=== PATIENT | male | born 1960 | race Caucasian/White ===

== ENCOUNTER 2020-08-15 11:05 | Outpatient (CLI) | payer OTHER | END 2020-08-15 11:06 | disposition home or self-care (01) | LOC: ULT 11:05 | PROVIDERS: ATTEND Psychiatry & Neurology Neurology | DX: Z02.71 Encounter for disability determination (principal); I70.203 Unspecified atherosclerosis of native arteries of extremities, bilateral legs | CPT/HCPCS: 93922 ==